=== PATIENT | female | born 2000 | race Two or more races ===

== ENCOUNTER 2019-03-18 21:42 | Emergency (ER) | payer OTHER ==
--- NOTE | 2019-03-18 22:44 | ER Document Report ---
ED General - General Chief Complaint: Passed Out Prior to Arrival Stated Complaint: FAINTED Time Seen by Provider: 03/18/19 22:19 TRAVEL OUTSIDE OF THE [place] IN LAST 30 DAYS: No - HPI Notes: Patient is a 18-year-old female that presents to the emergency department for chief complaint of syncope. Patient was reportedly taking a nap for a few hours and then woke up to go have dinner. While she was putting food on her plate she started to feel nauseated. Patient turned to walk to the sink to throw up and in route to the sink had a syncopal episode. She states she was feeling nauseated and did have tunnel vision. She was feeling lightheaded prior to passing out. Family did witness her fall backwards and hit her head off the tile ground. She regained consciousness after a few seconds of lying on the ground. Patient has not had any vomiting since her syncopal episode. She denied any palpitations or chest pain. Patient did not have anything to eat since early this morning when she had some eggs. She cannot recall if she drink any fluids today either. She has no history of syncope in the past. There is no family history of early sudden or cardiac disease. She denies current . She states her LMP was last week and was normal for her. Currently patient reports a mild diffuse headache. She denies any numbness and weakness. Past Medical History: Negative Past Surgical History: Negative Social History: Denies drugs alcohol and tobacco Family History: Reviewed and noncontributory for presenting illness Allergies: Reviewed, see documented allergy list. REVIEW OF SYSTEMS: CONSTITUTIONAL : No fever No chills No diaphoresis No recent illness EENT: No vision changes No congestion No sore throat CARDIOVASCULAR: No chest pain No palpitations Syncope RESPIRATORY: No shortness of breath No cough No difficulty breathing GASTROINTESTINAL: No abdominal pain nausea No vomiting No diarrhea GENITOURINARY: No dysuria No hematuria No difficulty urinating MUSCULOSKELETAL: No back pain No leg pain No arm pain SKIN: No rashes No lesions LYMPHATIC: No swollen, enlarged glands. NEUROLOGICAL: No lightheadedness headache No weakness No paresthesias PSYCHIATRIC: No anxiety No depression PHYSICAL EXAMINATION: Vital signs reviewed, nursing noted reviewed. GENERAL: Well-appearing, thin and in no acute distress. HEAD: Atraumatic, normocephalic. EYES: Eyes appear normal, extraocular movements intact, sclera anicteric, conjunctiva are normal. ENT: nares patent, oropharynx clear without exudates. Moist mucous membranes. NECK: Normal range of motion, supple without lymphadenopathy LUNGS: Breath sounds clear to auscultation bilaterally and equal. No wheezes rales or rhonchi. HEART: Regular rate and rhythm without murmurs ABDOMEN: Soft, nontender, normoactive bowel sounds. No rebound, guarding, or rigidity. No masses appreciated. EXTREMITIES: Nontender, good range of motion, no pitting or edema. NEUROLOGICAL: No focal neurological deficits. Moves all extremities spontaneously Motor and sensory grossly intact on exam. PSYCH: Normal mood, normal affect. SKIN: Warm, Dry, normal turgor, no rashes or lesions noted on exposed skin - Related Data Allergies/Adverse Reactions: No Known Allergies Allergy (Unverified 03/18/19 21:49) Past Medical History - Social History Smoking Status: Never Smoker Family History: Reviewed & Not Pertinent Physical Exam - Vital signs Vitals: Temp Pulse Resp BP Pulse Ox 97.5 F 98 H 14 101/64 99 03/18/19 21:47 03/18/19 21:47 03/18/19 21:47 03/18/19 21:47 03/18/19 21:47 Course - Re-evaluation Re-evalutation: 03/18/19 22:44 Vitals reviewed. Nursing notes reviewed. Patient is well-appearing and in no acute distress. She is orthostatic negative. Patient has a jippm-bp-[id number] glucose of 85. She was ordered IV fluids for her poor oral intake today. Patient is on telemetry monitoring. 03/18/19 23:55 Patient reevaluated. She states her headache has improved. She is remained hemodynamically stable without focal deficits. She has not had any vomiting in the emergency room. She is still reporting normal vision. Patient's EKG shows no ectopy or ischemic changes. Urinalysis is contaminated and will be sent for culture. Antibiotics will not be given since she is currently asymptomatic of UTI. Patient told she would receive a call if her culture came back positive. Patient's syncope today likely related to vasovagal secondary to not eating well and the stress of going wedding dress shopping today. She was counseled on return precautions, close head injury precautions, concussion precautions and what to do if she begins to feel lightheaded again including lying flat and propping her legs up. Patient currently states she feels better and would like to be discharged home. She will be discharged with her parents in stable condition. Laboratory 03/18/19 03/18/19 22:26 23:03 POC Glucose 85 Urine Color YELLOW Urine Appearance CLEAR Urine pH 6.0 Ur Specific [place] 1.009 Urine Protein NEGATIVE Urine Glucose (UA) NEGATIVE Urine Ketones NEGATIVE Urine Blood SMALL H Urine Nitrite NEGATIVE Urine Bilirubin NEGATIVE Urine Urobilinogen NEGATIVE Ur Leukocyte Esterase MODERATE H Urine WBC (Auto) 6 Urine RBC (Auto) 2 Urine Bacteria (Auto) TRACE Squamous Epi Cells Auto 3 Urine Mucus (Auto) RARE Urine Ascorbic Acid NEGATIVE Urine HCG, Qual NEGATIVE - Vital Signs Vital signs: Temp Pulse Resp BP Pulse Ox 97.5 F 81 14 103/66 99 03/18/19 21:47 03/18/19 22:37 03/18/19 21:47 03/18/19 22:37 03/18/19 21:47 - Laboratory Laboratory results interpreted by me: 03/18/19 23:03 Urine Blood SMALL H Ur Leukocyte Esterase MODERATE H Discharge - Discharge Clinical Impression: Syncope Qualifiers: Syncope type: vasovagal syncope Qualified Code(s): R55 - Syncope and collapse Closed head injury Qualifiers: Encounter type: initial encounter Qualified Code(s): S09.90XA - Unspecified injury of head, initial encounter Condition: Stable Disposition: HOME, SELF-CARE Instructions: Head Injury Precautions ([facility]), Syncopal Episode ([facility]), Vasovagal Symptoms ([facility]) Additional Instructions: Please return to the emergency department if you have any worsening, or concern of your symptoms. Please return to the emergency department if you develop chest pain, difficulty breathing, severe abdominal pain, or ongoing vomiting. Please follow-up with your primary care physician in 2-3 days and any other recommended physicians. If prescribed, take all medications as directed. If you have any questions or concerns do not hesitate to return the emergency department for evaluation. Be sure to eat throughout the day. Increase the amount of water you are drinking. If you begin to feel nauseated, flushed, lightheaded or have tunnel vision lie down on the ground as quickly as possible and elevate your feet to prevent passing out
[2019-03-18] MEDS ORDERED: ONDANSETRON HCL INJ/PF 4 MG/2 ML SDV IV ONE (23:04)
[2019-03-18] MEDS ORDERED: NORMAL SALINE 1000 ML 1,000 ML IV ONE (23:04)
--- NOTE | 2019-03-18 23:26 | EKG REPORT ---
SEVERITY:- BORDERLINE ECG - SINUS RHYTHM BORDERLINE PROLONGED QT INTERVAL : Confirmed by: Ra Yip 18-Mar-2019 23:25:51
[2019-03-18 23:46] LABS: APPEARANCE,URINE CLEAR; BILIRUBIN,URINE NEGATIVE (NEGATIVE); COLOR,URINE YELLOW; GLUCOSE, URINE NEGATIVE (NEGATIVE); KETONES,URINE NEGATIVE (NEGATIVE); LEUKOCYTE ESTERASE,URINE MODERATE (NEGATIVE); NITRITE,URINE NEGATIVE (NEGATIVE); PROTEIN,URINE NEGATIVE (NEGATIVE); URINE SPECIFIC GRAVITY 1.009; UROBILINOGEN,URINE NEGATIVE mg/dL (<2.0)
[2019-03-19 00:24] VITALS: BP 107/70
== END 2019-03-19 00:24 | disposition home or self-care (01) ==
LOC: ER 21:42
DX: R55 Syncope and collapse (principal); R11.0 Nausea; S09.90XA Unspecified injury of head, initial encounter; R51 Headache; W19.XXXA Unspecified fall, initial encounter; Y93.89 Activity, other specified
CPT/HCPCS: 93005; 99284; 96361; 96374; 87086; 82962; 81025; 87088; 81001; 93010; J2405; J7030